=== PATIENT | female | born 1955 | race Caucasian/White ===

== ENCOUNTER 2018-02-19 09:14 | Emergency (ER) | payer OTHER ==
[2018-02-19 09:31] VITALS: BP 145/82
[2018-02-19] MEDS ORDERED: Ketorolac 30 MG/ML SDV IVPUSH ONE (09:45)
[2018-02-19] MEDS ORDERED: Sodium Chloride 0.9% 10 ML Syringe FLUSH PRN (09:45)
[2018-02-19] MEDS ORDERED: Ondansetron 4 MG/2 ML SDV IVPUSH ONE (09:46)
[2018-02-19] MEDS ORDERED: diphenhydrAMINE 50 MG/ML SDV IVPUSH ONE (09:46)
[2018-02-19] MEDS ORDERED: Sodium Chloride 0.9% 1,000 ML IV ONE (09:47)
--- NOTE | 2018-02-19 09:47 | EDM.PDOC ---
ED HPI GENERAL MEDICAL PROBLEM - General Chief Complaint: Headache Stated Complaint: MIGRAINE Time Seen by Provider: 02/19/18 09:30 Source of Information: Reports: Patient, RN, RN Notes Reviewed History Limitations: Reports: No Limitations - History of Present Illness INITIAL COMMENTS - FREE TEXT/NARRATIVE: Patient presents to the ED at [facility] complaining of a left sided headache that started around noon yesterday. No recent changes with medications. No undue stress more than usual. She feels nauseated and did vomit one time last night. She had photophobia. She states the headache is on the left adventist area extending down to the base of the left skull area. No head injury or trauma. No visual field disturbances. Patient denies any back injuries. No issue with the ears. No recent URI. Onset Date: 02/18/18 Onset Time: 12:00 Left Headache Pain Score (Numeric/FACES): 8 - Related Data Allergies Allergy/AdvReac Type Severity Reaction Status Date / Time latex Allergy Rash Verified 02/19/18 09:36 morphine Allergy Itching Verified 02/19/18 09:36 Home Meds: Home Meds Aspirin [Adult Low Dose Aspirin EC] 81 mg PO DAILY 09/19/13 [History] Estrogens, Conjugated [Premarin] 0.3 mg PO DAILY 09/19/13 [History] Fluticasone Propionate [Flonase] 2 sprays NASBOTH BEDTIME 09/19/13 [History] Hydrocodone/Acetaminophen [Hydrocodon-Acetaminophn 10-325] 1 each PO Q4HR [History] Lisinopril/Hydrochlorothiazide [Lisinopril-Hctz 10-12.5 mg Tab] 1 each PO DAILY 09/19/13 [History] Verapamil HCl [Verapamil ER] 240 mg PO DAILY 09/19/13 [History] traMADol [Ultram] 50 mg PO Q6H 11/08/15 [History] Past Medical History HEENT History: Reports: Allergic Rhinitis Cardiovascular History: Reports: Hypertension, Other (See Below) Other Cardiovascular History: Mitral valve prolapse EF 65% Gastrointestinal History: Reports: Colon Polyp Genitourinary History: Reports: None 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 Tenosynovitis L wrist Neurological History: Reports: Migraines Psychiatric History: Reports: Depression Endocrine/Metabolic History: Reports: Obesity/BMI 30+ Hematologic History: Reports: None Oncologic (Cancer) History: Reports: None Dermatologic History: Reports: None, Seborrheic Dermatitis - Past Surgical History Head Surgeries/Procedures: Reports: None Female Surgical History: Reports: Hysterectomy, Salpingo-Oophorectomy, Other (See Below) Endocrine Surgical History: Reports: None Neurological Surgical History: Reports: None Musculoskeletal Surgical History: Reports: Arthroscopic Knee Oncologic Surgical History: Reports: None Social & Family History - Tobacco Use Smoking Status *Q: Unknown Ever Smoked ED ROS GENERAL - Review of Systems Review Of Systems: See Below Constitutional: Denies: Fever, Chills, Weakness HEENT: Reports: Glasses. Denies: Hearing Loss, Vision Change Respiratory: Denies: Shortness of Breath, Cough Cardiovascular: Denies: Chest Pain, Palpitations GI/Abdominal: Reports: Nausea, Vomiting. Denies: Abdominal Pain, Diarrhea Skin: Reports: No Symptoms Neurological: Reports: Headache. Denies: Pre-Existing Deficit - Physical Exam Exam: See Below Exam Limited By: No Limitations General Appearance: Alert, No Apparent Distress Eye Exam: Bilateral Eye: EOMI, Normal Inspection, PERRL Ears: Normal External Exam, Normal Canal, Normal TMs Head Exam: Atraumatic, Normocephalic Neck: Supple, Full Range of Motion, Tender Lateral Respiratory/Chest: No Respiratory Distress, Lungs Clear, Normal Breath Sounds Cardiovascular: Normal Peripheral Pulses, Regular Rate, Rhythm GI/Abdominal: Normal Bowel Sounds, Soft, Non-Tender Neuro Exam (Abbreviated): Alert, Oriented, Normal Cognition, No Motor/Sensory Deficits Skin Exam: Warm, Dry, Intact, Normal Color Course - Vital Signs Last Recorded V/S: Last Vital Signs Temp 36.2 C 02/19/18 09:25 Pulse 70 02/19/18 09:25 Resp 18 02/19/18 09:25 BP 145/82 H 02/19/18 09:25 Pulse Ox 98 02/19/18 09:25 - Orders/Labs/Meds Orders: Active Orders 24 hr Category Date Time Status Sodium Chloride 0.9% [Saline Flush] Med 02/19/18 09:45 Active 10 ml FLUSH ASDIRECTED PRN Peripheral IV Insertion Adult [OM.PC] Routine Oth 02/19/18 09:45 Ordered Medication Orders Sodium Chloride (Saline Flush) 10 ml FLUSH ASDIRECTED PRN PRN Reason: Keep Vein Open Meds: Medications Generic Name Dose Route Start Last Admin Trade Name Freq PRN Reason Stop Dose Admin Sodium Chloride 10 ml 02/19/18 09:45 Saline Flush FLUSH ASDIRECTED PRN Keep Vein Open Discontinued Medications Generic Name Dose Route Start Last Admin Trade Name Freq PRN Reason Stop Dose Admin Diphenhydramine HCl 50 mg 02/19/18 09:46 02/19/18 10:01 Benadryl IVPUSH 02/19/18 09:47 50 mg ONETIME ONE Administration Sodium Chloride 1,000 mls @ 999 mls/hr 02/19/18 09:47 02/19/18 09:59 Normal Saline IV 02/19/18 10:47 999 mls/hr ONETIME ONE Administration Ketorolac Tromethamine 30 mg 02/19/18 09:45 02/19/18 10:03 Toradol IVPUSH 02/19/18 09:46 30 mg ONETIME ONE Administration Ondansetron HCl 4 mg 02/19/18 09:46 02/19/18 09:59 Zofran IVPUSH 02/19/18 09:47 4 mg ONETIME ONE Administration Departure - Departure Time of Disposition: 11:12 Disposition: Home, Self-Care 01 Condition: Good Clinical Impression: Tension headache - Discharge Information *PRESCRIPTION DRUG MONITORING PROGRAM REVIEWED*: Not Applicable *COPY OF PRESCRIPTION DRUG MONITORING REPORT IN PATIENT TONJA: Not Applicable Instructions: Tension Headache, Adult Referrals: Alexei Cruz MD [Primary Care Provider] - Forms: ED Department Discharge Additional Instructions: 1. Stay well hydrated and rest 2. Continue same medications at home 3. See your Primary as symptoms warrant - Problem List Review Problem List Initiated/Reviewed/Updated: Yes - My Orders Last 24 Hours: My Active Orders 02/19/18 09:45 Sodium Chloride 0.9% [Saline Flush] 10 ml FLUSH ASDIRECTED PRN Peripheral IV Insertion Adult [OM.PC] Routine - Assessment/Plan Last 24 Hours: My Active Orders 02/19/18 09:45 Sodium Chloride 0.9% [Saline Flush] 10 ml FLUSH ASDIRECTED PRN Peripheral IV Insertion Adult [OM.PC] Routine Assessment:: Migraine Plan: Patient feeling much better after medications. She is a little drowsy but states she want to go home. Discussed with patient to follow up with PCP as symptoms warrant.
== END 2018-02-19 11:27 | disposition home or self-care (01) ==
LOC: VM.ED 09:14
DX: G44.209 Tension-type headache, unspecified, not intractable (principal); G43.909 Migraine, unspecified, not intractable, without status migrainosus; I10 Essential (primary) hypertension; Z79.899 Other long term (current) drug therapy; Z79.82 Long term (current) use of aspirin; Z91.040 Latex allergy status; Z88.5 Allergy status to narcotic agent
CPT/HCPCS: 96361; 96374; 96375; 99283; J1200; J1885; J2405; J7030

== ENCOUNTER 2020-09-13 08:42 | Emergency (ER) | payer OTHER ==
[2020-09-13] MEDS ORDERED: Nitroglycerin 0.4 MG Tab.SL SL ONE ×3 (08:58→09:18)
[2020-09-13] MEDS ORDERED: Aspirin 81 MG Tab.Chew PO ONE (08:58)
--- NOTE | 2020-09-13 09:01 | EDM.PDOC ---
ED HPI GENERAL MEDICAL PROBLEM - General Stated Complaint: SOB Time Seen by Provider: 09/13/20 08:45 Source of Information: Reports: Patient History Limitations: Reports: No Limitations - History of Present Illness INITIAL COMMENTS - FREE TEXT/NARRATIVE: Patient comes emergency department today from the clinic for further evaluation of chest pain. This patient was awoke about 6:00 this morning with a constant achiness in her mid sternum that radiates into her back the left side of her jaw her left arm and her right arm. The achiness is been constant since it began and it is continued until she could not take the achiness anymore and went to the clinic. She has never had anything like this before in the past. She has had a stress test in the past that was negative where she was noted to have some reentry tachycardia. She has had shortness of breath without nausea or vomiting this morning. No weakness dizziness lightheadedness. No palpitations or syncope. She does complain of some diaphoresis. No abdominal pain. No fever no chills. No hematuria dysuria or urinary frequency. No black or tarry stools. No paresthesias of her upper or lower extremities. No change in the functionality of her upper or lower extremities. She does have a history of hypertension as well as high cholesterol. She quit smoking cigarettes about 25 years ago. No COVID exposure no COVID symptoms. Chest Pain Score (Numeric/FACES): 7 - Related Data Allergies Allergy/AdvReac Type Severity Reaction Status Date / Time latex Allergy Rash Verified 09/13/20 09:37 morphine Allergy Itching Verified 09/13/20 09:37 Home Meds: Home Meds Aspirin [Adult Low Dose Aspirin EC] 81 mg PO DAILY 09/19/13 [History] Estrogens, Conjugated [Premarin] 0.3 mg PO DAILY 09/19/13 [History] Fluticasone Propionate [Flonase] 2 sprays NASBOTH BEDTIME 09/19/13 [History] Hydrocodone/Acetaminophen [Hydrocodon-Acetaminophn 10-325] 1 each PO Q4HR 09/19/13 [History] Lisinopril/Hydrochlorothiazide [Lisinopril-Hctz 10-12.5 mg Tab] 1 each PO DAILY 09/19/13 [History] Verapamil HCl [Verapamil ER] 240 mg PO DAILY 09/19/13 [History] traMADol [Ultram] 50 mg PO Q6H 11/08/15 [History] Past Medical History HEENT History: Reports: Allergic Rhinitis Cardiovascular History: Reports: Hypertension, Other (See Below) Other Cardiovascular History: Mitral valve prolapse EF 65% Gastrointestinal History: Reports: Colon Polyp Genitourinary History: Reports: None [employer]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 Tenosynovitis L wrist Neurological History: Reports: Migraines Psychiatric History: Reports: Depression Endocrine/Metabolic History: Reports: Obesity/BMI 30+ Hematologic History: Reports: None Oncologic (Cancer) History: Reports: None Dermatologic History: Reports: None, Seborrheic Dermatitis - Past Surgical History Head Surgeries/Procedures: Reports: None Female Surgical History: Reports: Hysterectomy, Salpingo-Oophorectomy, Other (See Below) Endocrine Surgical History: Reports: None Neurological Surgical History: Reports: None Musculoskeletal Surgical History: Reports: Arthroscopic Knee Oncologic Surgical History: Reports: None ED ROS GENERAL - Review of Systems Review Of Systems: Comprehensive ROS is negative, except as noted in HPI. ED EXAM, GENERAL - Physical Exam Exam: See Below Exam Limited By: No Limitations General Appearance: Alert, WD/WN, No Apparent Distress, Anxious Eye Exam: Bilateral Eye: EOMI Ears: Normal External Exam Nose: Normal Inspection Throat/Mouth: Normal Inspection Head: Atraumatic, Normocephalic Neck: Normal Inspection, Supple, Non-Tender Respiratory/Chest: No Respiratory Distress, Lungs Clear, Normal Breath Sounds, No Accessory Muscle Use, Chest Non-Tender Cardiovascular: Normal Peripheral Pulses, Regular Rate, Rhythm, No JVD, No Murmur Peripheral Pulses: 2+: Radial (L), Radial (R), Posterior Tibial (L), Posterior Tibial (R), Dorsalis Pedis (L), Dorsalis Pedis (R) GI/Abdominal: Normal Bowel Sounds, Soft, Non-Tender (Female) Exam: Deferred Rectal (Female) Exam: Deferred Back Exam: Normal Inspection, Full Range of Motion Extremities: Normal Inspection, Normal Range of Motion, Non-Tender, No Pedal Edema, Normal Capillary Refill Neurological: Alert, Oriented, Normal Cognition, No Motor/Sensory Deficits Psychiatric: Anxious Skin Exam: Intact, No Rash, Cool, Diaphoretic, Pallor Course - Vital Signs Last Recorded V/S: Last Vital Signs Temp 97.2 F 09/13/20 09:16 Pulse 71 09/13/20 10:23 Resp 16 09/13/20 10:23 BP 119/86 09/13/20 10:23 Pulse Ox 95 09/13/20 10:23 - Orders/Labs/Meds Orders: Active Orders 24 hr Category Date Time Status EKG Documentation Completion [RC] STAT Care 09/13/20 08:58 Active EKG Documentation Completion [RC] STAT Care 09/13/20 09:21 Ordered EKG Documentation Completion [RC] STAT Care 09/13/20 10:08 Ordered Chest 1V Frontal [CR] Stat Exams 09/13/20 09:07 Ordered PRO B-TYPE NATRIUR PEPT,BNPPRO [CHEM] Stat Lab 09/13/20 10:24 Ordered TROPONIN I HIGH SENSITIVITY [CHEM] Routine Lab 09/13/20 12:00 Ordered Nitroglycerin 25 MG in D5W @ 10 MCG/MIN (250ml) Premix Med 09/13/20 10:30 Ordered Nitroglycerin/D5W [Nitroglycerin 25 MG/D5W 250 ML] 25 mg in 250 ml IV TITRATE Sodium Chloride 0.9% [Saline Flush] Med 09/13/20 08:58 Active 10 ml FLUSH ASDIRECTED PRN Peripheral IV Insertion Adult [OM.PC] Stat Oth 09/13/20 08:58 Ordered Medication Orders Nitroglycerin/Dextrose (Nitroglycerin 25 Mg/D5w 250 Ml) 25 mg in 250 mls @ 6 mls/hr IV TITRATE HOWIE; Protocol Sodium Chloride (Sodium Chloride 0.9% 10 Ml Syringe) 10 ml FLUSH ASDIRECTED PRN PRN Reason: Keep Vein Open Last Admin: 09/13/20 10:29 Dose: 10 ml Documented by: [id number] Admin: 09/13/20 09:04 Dose: 10 ml Documented by: [id number] Labs: Laboratory Tests 09/13/20 09/13/20 09/13/20 Range/Units 09:09 09:09 09:09 WBC 4.6 (4.0-10.0) x10^3/uL RBC 4.43 (4.00-5.50) x10^6/uL Hgb 13.2 (12.0-16.0) g/dL Hct 38.9 (33.0-47.0) % MCV 87.8 (78.0-93.0) fL MCH 29.8 (26.0-32.0) pg MCHC 33.9 (32.0-36.0) g/dL RDW Coeff of Tha 13.6 (10.0-15.0) % Plt Count 250 (130-400) x10^3/uL Neut % (Auto) 65.2 (50.0-80.0) % Lymph % (Auto) 22.7 L (25.0-50.0) % [place] % (Auto) 6.5 (2.0-11.0) % Eos % (Auto) 5.2 H (0.0-4.0) % Baso % (Auto) 0.4 (0.2-1.2) % PT 10.0 (9.9-12.5) SEC INR 0.9 L (2.0-3.5) APTT 25.2 L (25.6-32.8) SEC D-Dimer, Quantitative (<=0.58) mg/LFEU Sodium 142 (136-145) mmol/L Potassium 4.1 (3.5-5.1) mmol/L Chloride 106 (98-107) mmol/L Carbon Dioxide 23 (21-32) mmol/L Anion Gap 17.1 H (5-15) mmol/L BUN 25 H (7-18) mg/dL Creatinine 0.9 (0.55-1.02) mg/dL Est Cr Clr Drug Dosing 49.95 mL/min Estimated GFR (MDRD) > 60 Glucose 110 H (70-99) mg/dL Calcium 9.0 (8.5-10.1) mg/dL Corrected Calcium 9.32 (8.5-10.1) mg/dL Total Bilirubin 0.6 (0.2-1.0) mg/dL AST 17 (15-37) U/L ALT 25 (14-59) U/L Alkaline Phosphatase 64 (46-116) U/L Troponin I High Sens < 4 (<=51) ng/L Total Protein 6.9 (6.4-8.2) g/dL Albumin 3.6 (3.4-5.0) g/dL Globulin 3.3 Albumin/Globulin Ratio 1.09 09/13/20 Range/Units 09:09 WBC (4.0-10.0) x10^3/uL RBC (4.00-5.50) x10^6/uL Hgb (12.0-16.0) g/dL Hct (33.0-47.0) % MCV (78.0-93.0) fL MCH (26.0-32.0) pg MCHC (32.0-36.0) g/dL RDW Coeff of Tha (10.0-15.0) % Plt Count (130-400) x10^3/uL Neut % (Auto) (50.0-80.0) % Lymph % (Auto) (25.0-50.0) % [place] % (Auto) (2.0-11.0) % Eos % (Auto) (0.0-4.0) % Baso % (Auto) (0.2-1.2) % PT (9.9-12.5) SEC INR (2.0-3.5) APTT (25.6-32.8) SEC D-Dimer, Quantitative 0.56 (<=0.58) mg/LFEU Sodium (136-145) mmol/L Potassium (3.5-5.1) mmol/L Chloride (98-107) mmol/L Carbon Dioxide (21-32) mmol/L Anion Gap (5-15) mmol/L BUN (7-18) mg/dL Creatinine (0.55-1.02) mg/dL Est Cr Clr Drug Dosing mL/min Estimated GFR (MDRD) Glucose (70-99) mg/dL Calcium (8.5-10.1) mg/dL Corrected Calcium (8.5-10.1) mg/dL Total Bilirubin (0.2-1.0) mg/dL AST (15-37) U/L ALT (14-59) U/L Alkaline Phosphatase (46-116) U/L Troponin I High Sens (<=51) ng/L Total Protein (6.4-8.2) g/dL Albumin (3.4-5.0) g/dL Globulin Albumin/Globulin Ratio Meds: Medications Generic Name Dose Route Start Last Admin Trade Name Freq PRN Reason Stop Dose Admin Nitroglycerin/Dextrose 25 mg in 250 mls @ 6 mls/hr 09/13/20 10:30 Nitroglycerin 25 Mg/D5w 250 Ml IV TITRATE HOWIE Protocol 10 MCG/MIN Sodium Chloride 10 ml 09/13/20 08:58 09/13/20 10:29 Sodium Chloride 0.9% 10 Ml Syringe FLUSH 10 ml ASDIRECTED PRN Administration Keep Vein Open Discontinued Medications Generic Name Dose Route Start Last Admin Trade Name Ernesto PRN Reason Stop Dose Admin Aspirin 324 mg 09/13/20 08:58 09/13/20 09:04 Aspirin 81 Mg Tab.Chew PO 09/13/20 08:59 324 mg ONETIME ONE Administration Nitroglycerin 0.4 mg 09/13/20 08:58 09/13/20 09:05 Nitroglycerin 0.4 Mg Tab.Sl SL 09/13/20 08:59 0.4 mg ONETIME ONE Administration Nitroglycerin 0.4 mg 09/13/20 09:18 09/13/20 09:16 Nitroglycerin 0.4 Mg Tab.Sl SL 09/13/20 09:19 0.4 mg ONETIME ONE Administration Nitroglycerin 0.4 mg 09/13/20 09:16 09/13/20 10:14 Nitroglycerin 0.4 Mg Tab.Sl SL 09/13/20 09:17 0.4 mg ONETIME ONE Administration - Radiology Interpretation Free Text/Narrative:: Chest x-ray per radiology is negative - Re-Assessments/Exams Free Text/Narrative Re-Assessment/Exam: 09/13/20 09:06 EKG with NS without ST elevation or depression when reviewed extemporaneously by myself. 324 aspirin orally. Nitro 1 tab SL. Labs drawn. 09/13/20 09:26 after 2 nitros her symptoms of CP back arm pain has resolved. Skin is pink warm minimally diaphoretic. Repeat EKG: Unchanged from previous 09/13/20 10:30 Her laboratory evaluation is rather unremarkable. Her D-dimer is negative. Her troponin is negative. 09/13/20 10:51 Although her troponin is negative her D-dimer is negative. She did have recurrence of her chest pain that was very similar to her presentation. She once again became diaphoretic. She has achiness in her chest into her back her left jaw and her left arm. She was once again given a sublingual nitro tablet with improvement of her chest pain and started on nitroglycerin drip. I have concerns for unstable angina with this patient. I called and spoke with Dr. May at [facility] in [place]. HPI ER course findings and concerns were relayed to him. His questions were answered. He accepted the patient in transfer at this time and would also like Heparin gtt started. I discussed the negative work-up so far although the patient has a quite concerning story for unstable angina and I shared this with the patient. I do not feel that it is appropriate to wait around for repeat of her troponin as it really would not change much of my therapy at this time as she clearly has recurrent unstable angina. She was started on a heparin bolus as well as a heparin drip. She is comfortable with the plan of transfer to [facility] in [place]. Her questions were answered. Departure - Departure Time of Disposition: 10:28 Disposition: DC/Tfer to Acute Hospital 02 Reason for Transfer *Q: Primary PCI Indicated Clinical Impression: Unstable angina Forms[facility] Event Note (ED) - Focused Exam Vital Signs: Vital Signs Temp Pulse Resp BP BP Pulse Ox 09/13/20 10:23 71 16 119/86 95 09/13/20 10:18 72 16 119/86 96 09/13/20 10:14 115/79 09/13/20 09:42 74 16 121/78 95 09/13/20 09:16 97.2 F 76 16 131/86 131/86 97 09/13/20 09:05 150/91 H 09/13/20 09:00 97.2 F 71 20 163/86 H 95 - My Orders Last 24 Hours: My Active Orders 09/13/20 08:58 EKG Documentation Completion [RC] STAT Sodium Chloride 0.9% [Saline Flush] 10 ml FLUSH ASDIRECTED PRN Peripheral IV Insertion Adult [OM.PC] Stat 09/13/20 09:07 Chest 1V Frontal [CR] Stat 09/13/20 09:21 EKG Documentation Completion [RC] STAT 09/13/20 10:08 EKG Documentation Completion [RC] STAT 09/13/20 10:24 PRO B-TYPE NATRIUR PEPT,BNPPRO [CHEM] Stat 09/13/20 10:30 Nitroglycerin 25 MG in D5W @ 10 MCG/MIN (250ml) Premix Nitroglycerin/D5W [Nitroglycerin 25 MG/D5W 250 ML] 25 mg in 250 ml IV TITRATE 09/13/20 12:00 TROPONIN I HIGH SENSITIVITY [CHEM] Routine - Assessment/Plan Last 24 Hours: My Active Orders 09/13/20 08:58 EKG Documentation Completion [RC] STAT Sodium Chloride 0.9% [Saline Flush] 10 ml FLUSH ASDIRECTED PRN Peripheral IV Insertion Adult [OM.PC] Stat 09/13/20 09:07 Chest 1V Frontal [CR] Stat 09/13/20 09:21 EKG Documentation Completion [RC] STAT 09/13/20 10:08 EKG Documentation Completion [RC] STAT 09/13/20 10:24 PRO B-TYPE NATRIUR PEPT,BNPPRO [CHEM] Stat 09/13/20 10:30 Nitroglycerin 25 MG in D5W @ 10 MCG/MIN (250ml) Premix Nitroglycerin/D5W [Nitroglycerin 25 MG/D5W 250 ML] 25 mg in 250 ml IV TITRATE 09/13/20 12:00 TROPONIN I HIGH SENSITIVITY [CHEM] Routine
--- NOTE | 2020-09-13 09:01 | PCM.EKG ---
#1 Interpretation EKG Date: 09/13/20 Time: 08:45 Rhythm: NSR Rate (Beats/Min): 72 [place]: Normal P-Wave: Present QRS: Normal ST-T: Normal QT: Normal Comparison: NA - No Prior EKG
[2020-09-13] MEDS: Sodium Chloride 0.9% 10 ML Syringe FLUSH PRN ×2 (09:04→10:29)
--- NOTE | 2020-09-13 09:32 | PCM.EKG ---
#2 Interpretation EKG Date: 09/13/20 Time: 09:26 Rhythm: NSR Rate (Beats/Min): 73 [place]: Normal P-Wave: Present QRS: Normal ST-T: Normal QT: Normal Comparison: No Change
[2020-09-13 09:34] LABS: PTT,PARTIAL THROMBOPLSTIN TIME 25.2 SEC (25.6-32.8)
[2020-09-13 09:38] LABS: CHLORIDE,CL 106 mmol/L (98-107); SODIUM,NA 142 mmol/L (136-145)
[2020-09-13 09:40] LABS: ANION GAP 17.1 mmol/L (5-15)
[2020-09-13] MEDS ORDERED: Nitroglycerin/D5W 25 MG/250 ML BOTTLE IV SCH (10:30)
--- NOTE | 2020-09-13 10:30 | PCM.EKG ---
#3 Interpretation EKG Date: 09/13/20 Time: 10:06 Rhythm: NSR Rate (Beats/Min): 67 [place]: Normal P-Wave: Present QRS: Normal ST-T: Normal QT: Normal Comparison: No Change
[2020-09-13] MEDS ORDERED: Heparin Sodium 5,000 Units/ML Vial IVPUSH ONE (10:33)
--- NOTE | 2020-09-13 10:33 | CR ---
[id number] RAD/RAD Chest PA or AP 1V EXAM: FRONTAL CHEST INDICATION: CHEST PAIN. COMPARISON: None. DISCUSSION: The heart and lungs are normal in appearance. IMPRESSION: 1. Negative exam. Codey Ortiz MD 09/13/20 1032 Thank you for allowing us to participate in the care of your patient.
[2020-09-13] MEDS ORDERED: Heparin Sodium/0.45% NaCl 25,000 UNITS/500 ML BAG IV SCH (10:45)
[2020-09-13 11:15] VITALS: BP 122/71; PULSE 69
== END 2020-09-13 11:29 | disposition short-term general hospital (02) ==
LOC: VM.ED 08:42
DX: I20.0 Unstable angina (principal); I10 Essential (primary) hypertension; E66.9 Obesity, unspecified; Z68.30 Body mass index [BMI] 30.0-30.9, adult; Z91.040 Latex allergy status; Z88.5 Allergy status to narcotic agent; Z79.82 Long term (current) use of aspirin; Z79.899 Other long term (current) drug therapy
CPT/HCPCS: 36415; 71045; 80053; 83880; 84484; 85025; 85379; 85610; 85730; 93005; 93010; 96365; 96368; 99284; 99285-25; A9270-GY; J1644; J3490

== ENCOUNTER 2021-06-20 18:33 | Emergency (ER) | payer OTHER ==
[2021-06-20] MEDS ORDERED: Lactated Ringers 1,000 ML IV ONE (18:47)
[2021-06-20] MEDS ORDERED: diphenhydrAMINE 50 MG/ML SDV IVPUSH ONE ×2 (18:47→19:39)
[2021-06-20 19:28] LABS: CHLORIDE,CL 104 mmol/L (98-107); SODIUM,NA 139 mmol/L (136-145)
[2021-06-20 19:29] LABS: ANION GAP 16.3 mmol/L (5-15)
[2021-06-20] MEDS ORDERED: Metoclopramide 10 MG/2 ML SDV IVPUSH ONE (19:39)
[2021-06-20] MEDS ORDERED: Ketorolac 30 MG/ML SDV IVPUSH ONE (19:39)
[2021-06-20] MEDS ORDERED: Take Home: Promethazine 25 MG, 4 Tab Pack PO ONE (21:04)
[2021-06-21 01:48] VITALS: BP 169/91; PULSE 88
== END 2021-06-20 21:22 | disposition home or self-care (01) ==
LOC: VM.ED 18:33
DX: G43.809 Other migraine, not intractable, without status migrainosus (principal); E86.0 Dehydration; I10 Essential (primary) hypertension; K21.9 Gastro-esophageal reflux disease without esophagitis; E66.9 Obesity, unspecified; Z68.30 Body mass index [BMI] 30.0-30.9, adult; Z91.040 Latex allergy status; Z88.5 Allergy status to narcotic agent; Z88.8 Allergy status to other drugs, medicaments and biological substances; Z79.82 Long term (current) use of aspirin; Z79.899 Other long term (current) drug therapy
CPT/HCPCS: 36415; 70450; 80053; 83735; 84484; 85025; 93005; 96374; 96375; 96376; 99285-25; A9270-GY; J1200; J1885; J2765; J7120

== ENCOUNTER 2022-01-03 06:38 | Day surgery (SDC) | payer OTHER ==
[2022-01-03] MEDS ORDERED: Lactated Ringers 1,000 ML IV SCH (07:00)
[2022-01-03] MEDS ORDERED: Propofol 200 MG/20 ML SDV ONE ×2 (08:56→09:36)
[2022-01-03] MEDS ORDERED: Midazolam 1 MG/ML 2 ML SDV ONE (08:56)
[2022-01-03] MEDS ORDERED: fentaNYL 100 MCG/2 ML SDV ONE (08:56)
[2022-01-03 10:01] VITALS: BP 137/75; PULSE 61
== END 2022-01-03 10:30 | disposition home or self-care (01) ==
LOC: VM.SDS 06:38
PROVIDERS: ATTEND Student in an Organized Health Care Education/Training Program
DX: Z12.11 Encounter for screening for malignant neoplasm of colon (principal); D12.0 Benign neoplasm of cecum; D12.8 Benign neoplasm of rectum; I10 Essential (primary) hypertension; G43.909 Migraine, unspecified, not intractable, without status migrainosus; F32.A Depression, unspecified; E66.09 Other obesity due to excess calories; G43.109 Migraine with aura, not intractable, without status migrainosus; F51.01 Primary insomnia; I42.9 Cardiomyopathy, unspecified; Z88.5 Allergy status to narcotic agent; Z88.8 Allergy status to other drugs, medicaments and biological substances; Z90.49 Acquired absence of other specified parts of digestive tract; Z98.890 Other specified postprocedural states; Z79.899 Other long term (current) drug therapy; Z87.891 Personal history of nicotine dependence; Z91.040 Latex allergy status; Z68.31 Body mass index [BMI] 31.0-31.9, adult
CPT/HCPCS: 00811; J2250; J2704; J3010; J7120